=== PATIENT | male | born 1950 | race African-American/Black ===

== ENCOUNTER → 2018-04-30 | Outpatient (REF) ==
[~2018-04-30] MED LIST: PRINIVIL10 MG PO; ULTRAM 50MG TAB50 MG PO; VOLTAREN 75 DR75 MG PO
[2018-04-30 16:49] LABS: HIV 1/2 Antibodies Non-Reactive; HIV-1p24 Antigen Non-Reactive
[2018-05-01 02:39] LABS: HEPATITIS B SURFACE ANTIBODY <2.0 (()); HEPATITIS B SURFACE ANTIGEN Negative (Negative); HEPATITIS C VIRUS ANTIBODY Negative (Negative)
== END ==
LOC: ZMSC 15:54
PROVIDERS: Orthopaedic Surgery Sports Medicine
DX: Z01.89 Encounter for other specified special examinations (principal)